=== PATIENT | male | born 1975 | race Caucasian/White ===

== ENCOUNTER 2016-11-09 06:51 | Emergency (ER) | payer OTHER ==
[~2016-11-09] VITALS: Ht 170.2 cm; Wt 77.3 kg
[~2016-11-09 06:51] MED LIST: ALBU18HF INH; CYCL10TA9 PO; NPR500T PO; TRAM50TA2 PO
[2016-11-09 07:02] VITALS: BP 111/73; PULSE 83; RESP 10; O2SAT 97
--- NOTE | 2016-11-09 07:35 | ED.REPORT ---
HPI-Abd Pain M 40 and Over Date of Service Nov 09, 2016 ED Provider: Thomas Carrasco MD 41 y/o male with a hx of a kidney stone presents to the ED complaining of left flank pain that radiates to left inguinal region, onset a week ago. The pt states the pain resolved initially but got significantly worse this morning. Associated sx include nausea. He denies fever, vomiting, diaphoresis, chills, change in appetite and dehydration. His current sx are similar to the last time he had a kidney stone, which had passed on its own. He has not taken any pain medications yet. The pt rates his current pain 7/10 and 9/10 at its maximum. Nursing Notes Stated Complaint: KIDNEY PAIN Chief Complaint: Male Abdominal Pain Nursing Notes Reviewed: Yes (Aqua-tools not reconciled) Allergies: Coded Allergies: acetaminophen (Verified Adverse Reaction, Severe, HYPERACTIVITY, 05/25/16) hydrocodone (Verified Adverse Reaction, Severe, HYPERACTIVITY, 05/25/16) Scheduled Tamsulosin (Flomax) 0.4 Mg Capsule 0.4 MG PO DAILY Scheduled PRN Albuterol Sulfate (Ventolin HFA Inhaler) 200 Puff/18 Gm Inhaler 2 PUFF INH Q4 PRN PRN For Wheezing Cyclobenzaprine (Cyclobenzaprine) 10 Mg Tablet 10 MG PO HS PRN PRN Spasm Naproxen (Naproxen) 500 Mg Tab 500 MG PO BID PRN PRN For Pain Ondansetron ODT (Ondansetron ODT) 8 Mg Tab.rapdis 8 MG PO Q4H PRN PRN For Nausea Tramadol (Tramadol) 50 Mg Tablet 50 MG PO TID PRN PRN PRN For Pain oxyCODONE-Acetaminophen 5-325 mg (oxyCODONE-Acetaminophen 5-325 mg) 1 Each Tablet 1-2 TAB PO Q6H PRN PRN For Pain General Time Seen by MD: 07:34 Chief Complaint Flank pain left Hx Obtained From: Patient Arrived By: Walk-in Sudden in Onset?: Yes Onset Occurred: 1 week ago Symptom Duration: Intermittent Progression since Onset: Gradually worsening Location: : Flank left Quality: Painful Radiation: : Inguinal left Severity: Current: Pain level 7 out of 10 Severity: Maximum: Pain level 9 out of 10 Recent Healthcare: Recent doctor visit Similar Sx Previous: Yes Past Medical History Past Medical History Notes: PCP Dr. Boaz Rios Past Medical History asthma back injury kidney stone Past Surgical History denies Family History Family history of heart problems -Father [place] at age 60+ - Brother heart murmur Smoking History Former Smoker Social History Alcohol Use: Denies alcohol use Drug Use: Denies drug use Ambulatory Status Independent Review of Systems Reports: Left inguinal region pain Denies: change in appetite Denies: dehydration Constitutional: Denies: Chills, Fever GI: Reports: Nausea, Denies: Vomiting Male: Reports Flank pain (left) Complete sys rev & neg: except as marked. Skin: Denies Diaphoresis Physical Exam Initial Vital Signs Vital Signs (First) Date Time Temp Pulse Resp B/P Pulse Ox O2 Delivery O2 Flow Rate FiO2 11/09/16 07:02 36.2 83 10 111/73 97 Room Air Initial VS: Reviewed, Vital signs normal Head / Eyes: Atraumatic, Normocephalic Neck: Supple, Non-tender, Full range of motion Extremities: Vascular intact, Neuro intact, No swelling, No tenderness Skin: Warm, Dry, No cyanosis Neurologic: Alert, Oriented, Nonfocal General/Constitutional: Awake, Alert, Cooperative Respiratory / Chest: Atraumatic, Breath sounds NL, Breath sounds = bilat, No respiratory distress, No rales, No rhonchi, No wheezing Cardiovascular: Heart rate NL, Regular rhythm, Heart sounds NL, No gallop, No murmurs, No rubs Abdomen: Atraumatic, Soft, Non-tender, No guarding, No rebound Back: Atraumatic, Full range of motion Interpretation & Diagnostics Lab Results Interpretation Result Diagram: 11/09/16 0730 11/09/16 0730 Test 11/09/16 07:15 11/09/16 07:30 Urine Color Straw (YELLOW) Urine Appearance Hazy (CLEAR,HAZY) Urine pH 6.0 (5.0-8.0) Urine Specific [place] 1.019 (1.003-1.035) Urine Protein Tracemg/dL (NEG,TRACE) Urine Glucose (UA) Negativemg/dL (NEGATIVE) Urine Ketones Negativemg/dL (NEGATIVE) Urine Occult Blood Large (NEGATIVE) Urine Nitrite Negative (NEGATIVE) Urine Bilirubin Negative (NEGATIVE) Urine Urobilinogen Normalmg/dL (NORMAL) Urine Leukocyte Esterase Negative (NEGATIVE) Urine RBC 11-50/hpf (0-2) Urine WBC 0-5/hpf (0-5) Urine Epithelial Cells Occasional/hpf (NONE-MOD) Urine Crystals None seen (NONE SEEN) Urine Bacteria None/hpf (NONE-FEW) Urine Hyaline Casts None/lpf (NONE) Urine Granular Casts None seen (NONE SEEN) Urine Waxy Casts None seen (NONE SEEN) Urine Red Blood Cell Casts None seen (NONE SEEN) Urine White Blood Cell Casts None seen (NONE SEEN) Urine Mucus Present (None Seen) Urine Trichomonas None seen (NONE SEEN) Urine Yeast None (NONE SEEN) Urinalysis Comment None Urine Culture Reflexed Not indicated Hold Urine Received (Received) White Blood Count 6.8th/mm3 (3.8-10.1) Red Blood Count 5.07mil/mm3 (4.40-5.80) Hemoglobin 15.2g/dL (13.8-17.2) Hematocrit 45.5% (41.0-50.0) Mean Corpuscular Volume 89.7fL (81-100) Mean Corpuscular Hemoglobin 30.0pg (27.0-35.0) Mean Corpuscular Hemoglobin Concent 33.4% (32.0-37.0) Red Cell Distribution Width 13.1% (12.3-15.4) Platelet Count 276bil/L (150-400) Neutrophils (%) (Auto) 63.6% (40-74) Lymphocytes (%) (Auto) 22.7% (14-46) Monocytes (%) (Auto) 9.9% (4-12) Eosinophils (%) (Auto) 3.4% (0-5) Basophils (%) (Auto) 0.3% (0-3) Sodium Level 138mEq/L (134-144) Potassium Level 3.8mEq/L (3.5-5.2) Chloride Level 102mEq/L (97-108) Carbon Dioxide Level 25mmol/L (18-29) Blood Urea Nitrogen 14mg/dL (6-24) Creatinine 0.85mg/dL (0.76-1.27) Estimat Glomerular Filtration Rate 106mL/min (>59) Glucose Level 109mg/dL (60-99) Calcium Level 9.1mg/dL (8.5-10.1) Total Bilirubin 0.4mg/dL (0.0-1.2) Aspartate Amino Transf (AST/SGOT) 17U/L (0-50) Alanine Aminotransferase (ALT/SGPT) 14U/L (0-44) Alkaline Phosphatase 115U/L (25-150) Total Protein 6.7g/dL (6.4-8.4) Albumin 3.9g/dL (3.4-5.0) Lab Results Interpretation: CBC nl CMP nl UA + bld Re-Eval/Medical Decision Med Decision/Clinical Course This is a 41-year-old male with a history of a kidney stone several years ago that required any intervention, presents with acute colicky flank pain on the left side but similar in character. Fevers, reports some urinary urgency. He denies dysuria. He denies gross hematuria On exam he appears in colicky discomfort, but has a soft nontender abdomen. Records do indicate he said CT diagnosis of kidney stone recent passage on the right side several years ago. His urine was positive for hematuria here. At this point I discussed his high probability of having another stone, this time on the left side and recommended symptomatic management. Patient's entirely comfortable with this. He received Toradol, Dilaudid, ondansetron and is markedly improved. His urine is positive for blood, negative for markers of infection. The patient's be discharged on some tamsulosin, ibuprofen, Percocet, and ondansetron. Routine precautions were reviewed. The patient's urinary urgency, I suspect the stone is abutting the UVJ. Patient has a urine strainer. He is discharged in much improved condition. Source of Hx: Old records Time of Eval: 09:30 Patient Status: Condition improved Re-Evaluation/Progress Note: Rechecked pt. Discussed lab results, imaging results, diagnosis and plan to discharge. Pt understands and agrees with the plan. F/U instructions and RTER warning given. All questions addressed. Differential Diagnosis: Positive: Urolithiasis, Negative: Abdominal aortic aneurysm, Acute coronary syndrome, Appendicitis, Esophageal rupture, Gun shot wound abdomen, Peritonitis, Porphyria, Postop complication, Pyelonephritis, Stab wound abdomen, Urinary tract infection Counseled Regarding: Diagnosis, Lab results, Need for follow-up, When/why to return to ED Discharge & Departure Primary Impression: Kidney stone on left side Disposition: Home Vital Signs - All Vital Signs Date Time Temp Pulse Resp B/P Pulse Ox O2 Delivery O2 Flow Rate FiO2 11/09/16 10:36 64 12 106/57 96 Room Air 11/09/16 10:34 64 12 106/57 96 Room Air 11/09/16 09:55 72 18 99/57 95 Room Air 11/09/16 07:02 36.2 83 10 111/73 97 Room Air )( All Prior VS Reviewed: Yes Condition: Stable Additional Instructions: 1. Your symptoms, exam, and urine tests all suggest you are having a kideny stone in the left ureter (likely at the utero-vesicular junction, just outside the bladder as that causes that sense of urgency and sense of need to urinate.) 2. Symptomatic treatment is recommended at this time (as there is a downside to repeated imaging) 3. Take ibuprofen 400-800mg three times a day for pain (helps releave ureteral spasm) 4. Take percocet (oxycodone/APAP) 5/325 1-2 tabs up to every 4-6 hours IF needed for pain. NOTE: This medication contains a narcotic and cauess drowsiness. NO driving for at least 4 hours after taking. 5. Take tamsulosin 0.4mg once a day (may help the stone pass sooner) for the next week. 6. IF needed for nausea take ondansetron 8mg (let dissolve under the tongue) up to every 4 hours. 7. Symptoms are expected to be improving over the next several days 8. Return if new, worsening, or uncontrolled symptoms occur. Referrals: Edmond Rios MD (PCP) Scribe Attestation Portions of this note were transcribed by Yoly Frye. I, , personally performed the history, physical exam and medical decision-making;I reviewed and confirmed the accuracy of the information in the transcribed note. Signed by Phillip Rosas. 11/09/16 09:47 copies to: Edmond Rios MD, Matthew F MD Nov 09, 2016 07:35 Yoly Frye Nov 09, 2016 07:43
[2016-11-09] MEDS ORDERED: Ketorolac 15 mg/mL Inj IVPUSH ONE (07:40)
[2016-11-09] MEDS ORDERED: Ondansetron 2 mg/mL 2 mL Inj IVPUSH ONE (07:40)
[2016-11-09] MEDS ORDERED: 0.9% Sodium Chloride 1,000 ML IV ONE (07:45)
[2016-11-09] MEDS: HYDROmorphone 0.5 mg/0.5 mL iSecure Syringe IVPUSH PRN ×3 (07:56→09:55)
[2016-11-09 07:59] LABS: BASOPHILS % (AUTO) 0.3 % (0-3); EOSINOPHILS % (AUTO) 3.4 % (0-5); MONOCYTES % (AUTO) 9.9 % (4-12); Mean Corpuscular Volume 89.7 fL (81-100); NEUTROPHILS % (AUTO) 63.6 % (40-74); Platelet Count 276 bil/L (150-400)
[2016-11-09 09:18] LABS: APPEARANCE,URINE HAZY (CLEAR,HAZY); COLOR,URINE STRAW (YELLOW); OCCULT BLOOD,URINE LARGE (NEGATIVE); UROBILINOGEN,URINE NORMAL (NORMAL)
[2016-11-09] MEDS ORDERED: HYDROmorphone 0.5 mg/0.5 mL iSecure Syringe IVPUSH ONE (09:35)
[2016-11-09] MEDS ORDERED: OXYC1TAB24 PO (09:38)
[2016-11-09] MEDS ORDERED: TAMS0.4C98 PO (09:38)
[2016-11-09] MEDS ORDERED: ONDA8TAB10 PO (09:38)
[2016-11-09 09:55] VITALS: BP 99/57; PULSE 72; RESP 18; O2SAT 95
[2016-11-09 10:34] VITALS: BP 106/57; PULSE 64; RESP 12; O2SAT 96
[2016-11-09 10:36] VITALS: BP 106/57; PULSE 64; RESP 12; O2SAT 96
== END 2016-11-09 10:37 | disposition home or self-care (01) ==
LOC: SED 06:51
DX: N20.0 Calculus of kidney (principal); Z87.891 Personal history of nicotine dependence; Z88.5 Allergy status to narcotic agent; Z88.6 Allergy status to analgesic agent
CPT/HCPCS: 36415; 80053; 81000; 85025; 96361; 96374; 96375; 96376; 99284; J1170; J1885; J2405; J7030

== ENCOUNTER 2016-12-02 19:59 | Emergency (ER) | payer OTHER ==
[~2016-12-02] VITALS: Ht 170.2 cm; Wt 77.3 kg
[~2016-12-02 19:59] MED LIST changes: +ONDA8TAB10 PO; +OXYC1TAB24 PO; +TAMS0.4C98 PO
[2016-12-02 20:13] VITALS: BP 116/80; PULSE 92; RESP 15; O2SAT 97
--- NOTE | 2016-12-02 21:59 | ED.REPORT ---
HPI-Abd Pain M 40 and Over Date of Service Dec 02, 2016 ED Provider: Dr. Rodas Pt is a 41 y/o male w/ a hx of current kidney stones presenting to the ED c/o worsening left flank pain onset 1 month ago. The patient was experiencing left flank pain and came into the ED 1 week later and was empirically diagnosed with a left-sided kidney stone on November 09. He saw the urologist Dr. Mendoza in follow-up and had a CT KUB performed November 17 due to ongoing pain which showed a 4 mm distal left ureteral stone and an additional 2 mm nonobstructing left renal stone. He was placed on Flomax and Percocet. He continued to experience pain and had a KUB x-ray performed 4 days later showing that the distal stone had not moved. He was placed on a new pain medication (unspecified) but it caused him to be too somnolent so he decided to stop taking it. His pain has been continued and worsening since then. He c/o associated nausea, vomiting, anorexia, hematuria, dysuria, intermittent chills. Pt denies over fever, inability to urinate. He is not taking antibiotics. Nursing Notes Stated Complaint: POSSIBLE KIDNEY STONES Chief Complaint: Male Abdominal Pain Nursing Notes Reviewed: Yes Allergies: Coded Allergies: acetaminophen (Verified Adverse Reaction, Severe, HYPERACTIVITY, 05/25/16) hydrocodone (Verified Adverse Reaction, Severe, HYPERACTIVITY, 05/25/16) Scheduled Tamsulosin (Flomax) 0.4 Mg Capsule 0.4 MG PO DAILY Scheduled PRN Albuterol Sulfate (Ventolin HFA Inhaler) 200 Puff/18 Gm Inhaler 2 PUFF INH Q4 PRN PRN For Wheezing Cyclobenzaprine (Cyclobenzaprine) 10 Mg Tablet 10 MG PO HS PRN PRN Spasm Naproxen (Naproxen) 500 Mg Tab 500 MG PO BID PRN PRN For Pain Ondansetron ODT (Ondansetron ODT) 8 Mg Tab.rapdis 8 MG PO Q4H PRN PRN For Nausea Tramadol (Tramadol) 50 Mg Tablet 50 MG PO TID PRN PRN PRN For Pain oxyCODONE-Acetaminophen 5-325 mg (oxyCODONE-Acetaminophen 5-325 mg) 1 Each Tablet 1-2 TAB PO Q6H PRN PRN For Pain General Time Seen by MD: 21:59 Chief Complaint Flank pain left Hx Obtained From: Patient Arrived By: Walk-in Sudden in Onset?: No Onset Occurred: More than a week ago... (1 month) Symptom Duration: Waxes and wanes Progression since Onset: Waxes and wanes Location: : Flank left Quality: Painful Severity: Current: Mild Severity: Maximum: Moderate Recent Healthcare: Recent doctor visit, Recent testing, Previous diagnosis, Prior workup Similar Sx Previous: Yes Past Medical History Past Medical History Notes: PCP Dr. Boaz Rios Urologist: Dr. Mendoza Past Medical History asthma back injury Kidney stones Past Surgical History denies Family History Family history of heart problems -Father [place] at age 60+ - Brother heart murmur Smoking History Former Smoker Social History Alcohol Use: Denies alcohol use Drug Use: Denies drug use Ambulatory Status Independent Review of Systems Constitutional: Reports: Chills, Denies: Fever Respiratory: Denies: Non-productive cough, Shortness of breath Cardiovascular: Denies: Chest pain, Dyspnea on exertion GI: Reports: Abdominal pain, Nausea, Vomiting Male: Reports Dysuria, Reports Flank pain, Reports Hematuria Complete sys rev & neg: except as marked. Physical Exam Initial Vital Signs Vital Signs (First) Date Time Temp Pulse Resp B/P Pulse Ox O2 Delivery O2 Flow Rate FiO2 12/02/16 20:13 37.0 92 15 116/80 97 Room Air Initial VS: Reviewed, Vital signs normal Head / Eyes: Atraumatic, Normocephalic, PERRL ENT: Mucous membranes moist, Conjunctiva normal, No scleral icterus Neck: Supple, Full range of motion Extremities: Vascular intact, Neuro intact, No swelling Skin: Warm, Dry, No cyanosis Neurologic: Alert, Oriented, Nonfocal Psychiatric: Mood/affect normal, Behavior normal, Normal thought content General/Constitutional: Awake, Alert, No acute distress, Cooperative, Not toxic appearing Respiratory / Chest: Breath sounds NL, Breath sounds = bilat, No respiratory distress, No rales, No rhonchi, No wheezing Cardiovascular: Heart rate NL, Regular rhythm, Heart sounds NL, No gallop, No murmurs, No rubs Abdomen: Atraumatic, Soft, No guarding, No rebound, No distention, No palpable mass Mild left groin pain Back: Full range of motion, Painless range of motion Mild left CVAT Interpretation & Diagnostics Interpretation & Diagnostics: CT KUB: Conclusion: Mild left hydroureteronephrosis associated with a 3-4 mm stone at the left ureteral orifice. Mild urinary bladder wall thickening. This may be due to cystitis or bladder outlet obstruction. There is a tiny urachal diverticulum noted arising from the dome of bladder. Interpreted by Donavon Miranda MD at 23:34 Lab Results Interpretation Result Diagram: 12/02/16 22012/02/16 2200 Test 12/02/16 20:47 12/02/16 21:00 12/02/16 22:00 Hold Urine Received (Received) Urine Color Straw (YELLOW) Urine Appearance Clear (CLEAR,HAZY) Urine pH 6.5 (5.0-8.0) Urine Specific [place] 1.001 (1.003-1.035) Urine Protein Negativemg/dL (NEG,TRACE) Urine Glucose (UA) Negativemg/dL (NEGATIVE) Urine Ketones Negativemg/dL (NEGATIVE) Urine Occult Blood Moderate (NEGATIVE) Urine Nitrite Negative (NEGATIVE) Urine Bilirubin Negative (NEGATIVE) Urine Urobilinogen Normalmg/dL (NORMAL) Urine Leukocyte Esterase Trace (NEGATIVE) Urine RBC 0-2/hpf (0-2) Urine WBC 0-5/hpf (0-5) Urine Epithelial Cells Occasional/hpf (NONE-MOD) Urine Crystals None seen (NONE SEEN) Urine Bacteria None/hpf (NONE-FEW) Urine Hyaline Casts None/lpf (NONE) Urine Granular Casts None seen (NONE SEEN) Urine Waxy Casts None seen (NONE SEEN) Urine Red Blood Cell Casts None seen (NONE SEEN) Urine White Blood Cell Casts None seen (NONE SEEN) Urine Mucus None seen (None Seen) Urine Trichomonas None seen (NONE SEEN) Urine Yeast None (NONE SEEN) Urinalysis Comment None Urine Culture Reflexed Not indicated White Blood Count 10.3th/mm3 (3.8-10.1) Red Blood Count 4.89mil/mm3 (4.40-5.80) Hemoglobin 14.6g/dL (13.8-17.2) Hematocrit 42.8% (41.0-50.0) Mean Corpuscular Volume 87.5fL (81-100) Mean Corpuscular Hemoglobin 29.9pg (27.0-35.0) Mean Corpuscular Hemoglobin Concent 34.1% (32.0-37.0) Red Cell Distribution Width 12.5% (12.3-15.4) Platelet Count 268bil/L (150-400) Neutrophils (%) (Auto) 74.0% (40-74) Lymphocytes (%) (Auto) 15.6% (14-46) Monocytes (%) (Auto) 8.6% (4-12) Eosinophils (%) (Auto) 1.4% (0-5) Basophils (%) (Auto) 0.2% (0-3) Sodium Level 137mEq/L (134-144) Potassium Level 4.2mEq/L (3.5-5.2) Chloride Level 97mEq/L (97-108) Carbon Dioxide Level 24mmol/L (18-29) Blood Urea Nitrogen 14mg/dL (6-24) Creatinine 1.14mg/dL (0.76-1.27) Estimat Glomerular Filtration Rate 76mL/min (>59) Glucose Level 102mg/dL (60-99) Calcium Level 9.3mg/dL (8.5-10.1) Magnesium Level 2.2mg/dL (1.6-2.6) Total Bilirubin 0.5mg/dL (0.0-1.2) Aspartate Amino Transf (AST/SGOT) 21U/L (0-50) Alanine Aminotransferase (ALT/SGPT) 25U/L (0-44) Alkaline Phosphatase 112U/L (25-150) Total Protein 6.7g/dL (6.4-8.4) Albumin 3.9g/dL (3.4-5.0) Lipase 15U/L (13-60) Re-Eval/Medical Decision Time of Eval: 23:54 Re-Evaluation/Progress Note: Pt rechecked. Discussed imaging and lab results. Informed pt of plan for treatment. Pt understands and agrees with plan for treatment. F/U instructions and RTER warnings given. All questions addressed. Consultation : Referral / Consult Name: Bree Gregory MD Consulted With: Urology Call Returned at: 23:45 Reclaimer: Agrees with eval, Agrees with plan Note: Recommends fluids, flomax. No infection. Don't treat with abx. Should pass soon. Counseled Regarding: Diagnosis, Lab results, Need for follow-up, When/why to return to ED Discharge & Departure Primary Impression: Kidney stone on left side Additional Impressions: Hydroureteronephrosis Cystitis Disposition: Home Vital Signs - All Vital Signs Date Time Temp Pulse Resp B/P Pulse Ox O2 Delivery O2 Flow Rate FiO2 12/03/16 00:49 36.6 82 16 103/55 95 Room Air 12/02/16 23:29 83 18 111/63 96 Room Air 12/02/16 20:13 37.0 92 15 116/80 97 Room Air )( All Prior VS Reviewed: Yes Condition: Stable Patient Instructions: Ureteral Stones (ED) Additional Instructions: The CT scan showed that the stone has moved a very small amount towards the bladder. Your kidneys are still functioning well. I spoke with the on-call urologist swati who recommended we continue your outpatient medications including Percocet, Flomax, and nausea medication as needed The stone should pass soon. If it has not passed by 6 weeks you may need an interventional procedure. Continue to strain your urine. Return to the emergency department if you experience persistent fever or chills , worsening pain, persistent vomiting, or for other concerning symptoms. Follow-up with Dr. Mendoza next week to discuss today's visit and further symptom management. Referrals: Edmond Rios MD (PCP) Rama Mendoza MD [place] Attestation Portions of this note were transcribed by Trip Cartwright. I, Dr. Rodas personally performed the history, physical exam and medical decision-making; I reviewed and confirmed the accuracy of the information in the transcribed note. Signed by Phillip Edwards, 12/02/16 - [id number] copies to: Edmond Rios MD; Rama Mendoza MD, Gary R DO Dec 02, 2016 21:59 TRIP CARTWRIGHT Dec 02, 2016 22:48
[2016-12-02 22:14] LABS: BASOPHILS % (AUTO) 0.2 % (0-3); EOSINOPHILS % (AUTO) 1.4 % (0-5); MONOCYTES % (AUTO) 8.6 % (4-12); Mean Corpuscular Hemoglobin 29.9 pg (27.0-35.0); Mean Corpuscular Volume 87.5 fL (81-100); Platelet Count 268 bil/L (150-400)
[2016-12-02 22:35] LABS: Magnesium 2.2 mg/dL (1.6-2.6)
[2016-12-02] MEDS ORDERED: 0.9% Sodium Chloride 1,000 ML IV ONE (22:45)
[2016-12-02] MEDS ORDERED: cefTRIAXone Inj 1,000 MG in Dextrose 5% Minibag Plus 50 ML IV ONE (22:45)
[2016-12-02] MEDS ORDERED: Ondansetron 2 mg/mL 2 mL Inj IVPUSH PRN (22:45)
[2016-12-02] MEDS ORDERED: HYDROmorphone 0.5 mg/0.5 mL iSecure Syringe IVPUSH PRN (22:45)
[2016-12-02 23:17] LABS: APPEARANCE,URINE CLEAR (CLEAR,HAZY); COLOR,URINE STRAW (YELLOW); OCCULT BLOOD,URINE MODERATE (NEGATIVE); PH,URINE 6.5 (5.0-8.0); UROBILINOGEN,URINE NORMAL (NORMAL)
[2016-12-02 23:29] VITALS: BP 111/63; PULSE 83; RESP 18; O2SAT 96
[2016-12-03 00:49] VITALS: BP 103/55; PULSE 82; RESP 16; O2SAT 95
--- NOTE | 2016-12-03 08:31 | DRSVH ---
PROCEDURE: CT KUB ([id number]) INDICATIONS: Worsening left flank pain and nausea TECHNIQUE: Noncontrast 5 mm thick sections acquired from the diaphragms to the symphysis. 5 mm thick coronal an d sagittal reformats were then performed. For radiation dose reduction, the following was used: aut omated exposure control, adjustment of mA and/or kV according to patient size. COMPARISON: [facility], CT, CT KUB, 11/17/2016, 13:06. FINDINGS: Image quality: Excellent. Lung bases: There is minimal dependent atelectasis. Heart size is normal. Urinary system: There is interval distal progression of the 4 mm left ureteral stone seen on the vanessa or study which is out located in the urinary bladder the ureterovesicular junction. There is persist ent mild left hydroureteronephrosis with minimal perinephric stranding. There are 2-3 punctate nonob structive stones within the left kidney and a punctate nonobstructive stone within the right kidney. There is no right hydronephrosis. Right ureter is normal in caliber. The bladder demonstrates slig ht wall thickening and trabeculation although evaluation is limited due to incomplete distention. Th ere is slight tenting along the anterior bladder dome likely associated with a urachal remnant. Other solid organs: Liver and spleen are normal in size. Gallbladder appears within normal limits w ithout calcified gallstones. Pancreas is normal in contours. No adrenal nodules. Peritoneum and bowel: Unenhanced bowel loops demonstrate normal wall thickness and caliber. The elder endix is normal in appearance. There is colonic diverticulosis without acute diverticulitis. No free fluid or air. Nodes and vessels: No retroperitoneal or mesenteric adenopathy by size criteria. Aorta and inferior vena cava are normal in caliber. Abdominal wall: No ventral hernias. Pelvis: No free pelvic fluid. No inguinal hernias or adenopathy. Bones: No suspicious bony lesions. No vertebral body compression fractures. IMPRESSION: 1. Interval progression of a distal left urinary stone which is now located in the bladder at the ur eterovesicular junction. There is persistent mild left hydroureteronephrosis. 2. Additional punctate bilateral nonobstructing urinary stones as described. 3. Colonic diverticulosis. Concordant with preliminary interpretation. Dictated by: Evans Spencer M.D. on 12/03/2016 at 8:15 Approved by: Evans Spencer M.D. on 12/03/2016 at 8:23
== END 2016-12-03 00:51 | disposition home or self-care (01) ==
LOC: SED 19:59
DX: N13.2 Hydronephrosis with renal and ureteral calculous obstruction (principal); N30.90 Cystitis, unspecified without hematuria; J45.909 Unspecified asthma, uncomplicated; Z87.442 Personal history of urinary calculi; Z87.891 Personal history of nicotine dependence; Z88.5 Allergy status to narcotic agent; Z88.8 Allergy status to other drugs, medicaments and biological substances
CPT/HCPCS: 36415; 74176; 80053; 81000; 83690; 83735; 85025; 87086; 96365; 96375; 99285; J0696; J1170; J1885; J2405; J7030